=== PATIENT | female | born 1950 | race Native Hawaiian/Other Pacific Islander ===

== ENCOUNTER 2017-03-23 10:16 | Outpatient (CLI) | payer OTHER | END 2017-03-23 19:10 | disposition home or self-care (01) | LOC: MAMMO 10:16 | DX: Z12.31 Encounter for screening mammogram for malignant neoplasm of breast (principal) | CPT/HCPCS: G0202-TC ==

== ENCOUNTER 2017-06-26 13:55 | Outpatient (CLI) | payer OTHER | END 2017-06-26 19:10 | disposition home or self-care (01) | LOC: RAD 13:55 | DX: M25.541 Pain in joints of right hand (principal); M25.542 Pain in joints of left hand ==

== ENCOUNTER 2018-07-24 10:58 | Outpatient (CLI) | payer OTHER | END 2018-07-24 23:55 | disposition home or self-care (01) | LOC: MAMMO 10:58 | DX: Z12.31 Encounter for screening mammogram for malignant neoplasm of breast (principal) ==

== ENCOUNTER 2019-08-18 11:09 | Outpatient (CLI) | payer OTHER | END 2019-08-18 23:20 | disposition home or self-care (01) | LOC: MAMMO 11:09 | DX: Z12.31 Encounter for screening mammogram for malignant neoplasm of breast (principal) ==

== ENCOUNTER 2019-12-03 13:31 | Outpatient (CLI) | payer OTHER ==
[2019-12-03 14:07] LABS: POTASSIUM 3.6 mmol/L (3.6-5.2)
== END 2019-12-03 19:32 | disposition home or self-care (01) ==
LOC: LABW 13:31
PROVIDERS: Internal Medicine Cardiovascular Disease
DX: Z79.899 Other long term (current) drug therapy (principal)
CPT/HCPCS: 36415; 80048; 83880

== ENCOUNTER 2019-12-17 10:24 | Emergency (ER) | payer OTHER ==
[~2019-12-17] VITALS: Ht 165.1 cm; Wt 104.8 kg
[2019-12-17 10:36] VITALS: BP 147/78; TEMP 98.2
== END 2019-12-17 12:48 | disposition home or self-care (01) ==
LOC: ED 10:24
DX: S39.012A Strain of muscle, fascia and tendon of lower back, initial encounter (principal)
CPT/HCPCS: 81000; 96372; 99283; J1885; J2175; J2360; J2405

== ENCOUNTER 2020-09-23 10:57 | Outpatient (CLI) | payer OTHER | END 2020-09-23 23:14 | disposition home or self-care (01) | LOC: MAMMO 10:57 | DX: Z12.31 Encounter for screening mammogram for malignant neoplasm of breast (principal) ==

== ENCOUNTER 2021-10-14 10:47 | Outpatient (CLI) | payer OTHER | END 2021-10-14 20:17 | disposition home or self-care (01) | LOC: MAMMO 10:47 | PROVIDERS: ATTEND Nurse Practitioner Family | DX: Z12.31 Encounter for screening mammogram for malignant neoplasm of breast (principal) ==

== ENCOUNTER 2022-12-12 10:45 | Outpatient (CLI) | payer OTHER | END 2022-12-12 19:17 | disposition home or self-care (01) | LOC: MAMMO 10:45 | PROVIDERS: ATTEND Nurse Practitioner Family | DX: Z12.31 Encounter for screening mammogram for malignant neoplasm of breast (principal) ==